=== PATIENT | female | born 2000 | race Caucasian/White ===

== ENCOUNTER 2021-04-26 23:29 | Emergency (ER) | payer MEDICAID ==
[~2021-04-26] VITALS: Ht 180.3 cm; Wt 104.9 kg
[2021-04-27] MEDS ORDERED: NORG1TAB82 (00:31)
[2021-04-27] MEDS ORDERED: CEPH500C (00:31)
[2021-04-27] MEDS ORDERED: ONDA4TAB11 (00:31)
--- NOTE | 2021-04-27 00:43 | ED GI ---
General Chief Complaint: Abdominal/GI Problems Stated Complaint: N/V / 8 WEEK PREG / DX: UTI / COUGH / FEVER Nursing Triage Note: REPORTS BEING 8 WEEKS WITH VOMITTING X2 WEEKS. Source of Information: Patient History of Present Illness Date Seen by Provider: Apr 27, 2021 Time Seen by Provider: 00:24 Initial Comments PT ARRIVES VIA POV FROM HOME IN [place] PT STATES SHE HAS BEEN SICK FOR THE LAST 2 WEEKS C/O NAUSEA AND VOMITING--"CAN'T KEEP ANYTHING DOWN" STATES SHE HAS VOMITED X 11 TODAY HAS NOT HAD A BM IN 2 WEEKS PT HAD + TEST ON 04/06/21. HAS NOT SEEN OB YET LMP 03/03/21. PT IS AB 0 NO VAGINAL BLEEDING PT STATES SHE HAS HAD TEMP OF 101.2 HAS BEEN TO [facility] X 3 FOR THIS SAME COMPLAINT AND WAS DX WITH SAME THING EVERY TIME AND DX WITH UTI HAS BEEN GIVEN ROCEPHIN AND UNKNOWN ANTIBIOTICS, AND ZOFRAN AND UNKNOWN SUPPOSITORY, BUT STATES SHE CAN'T KEEP ANYTHING DOWN PT HAS NOT TAKEN ANYTHING FOR NAUSEA SINCE YESTERDAY, AND USED SUPPOSITORY X 1 YESTERDAY PT WAS SEEN AT [facility] FOR THIS PROBLEM, GIVEN ROCEPHIN, AND DISMISSED AT [address] [facility] AND THEN CAME HERE. 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 PCP: DR. LE IN [place] Allergies and Home Medications Allergies Coded Allergies: No Known Drug Allergies (Unverified , 04/27/21) Review of Systems Review of Systems Constitutional: see HPI, fever EENTM: No Symptoms Reported Respiratory: No Symptoms Reported Cardiovascular: No Symptoms Reported Gastrointestinal: See HPI; Denies Abdominal Pain; Constipated, Nausea, Vomiting Musculoskeletal: no symptoms reported Skin: no symptoms reported Psychiatric/Neurological: No Symptoms Reported Endocrine: No Symptoms Reported Past Wvudclb-[id number]-[id number] Hx Patient Social History Tobacco Use?: No Use of E-Cig and/or Vaping dev: No Substance use?: No Alcohol Use?: No Pt feels they are or have been: No Immunizations Up To Date First/Initial COVID19 Vaccinat: 12/20 Second COVID19 Vaccination Chepe: 09/25 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 oz. kg; 32.00 BMI Method: General Appearance: WD/WN, no apparent distress, other (DOES NOT APPEAR ILL OR TO BE IN ANY DISCOMFORT OR DISTRESS) Respiratory: normal breath sounds, no respiratory distress, no accessory muscle use Cardiovascular: regular rate, rhythm, no murmur Gastrointestinal: soft Extremities: normal inspection, no pedal edema Back: no CVA tenderness Neurologic/Psychiatric: no motor/sensory deficits, alert, normal mood/affect, oriented x 3 Skin: normal color, warm/dry Progress/Results/Core Measures Results/Orders Lab Results Laboratory Tests Test 04/27/21 00:37 04/27/21 00:43 04/27/21 00:45 04/27/21 00:49 Range/Units Urine Opiates Screen NEGATIVE NEGATIVE Urine Oxycodone Screen NEGATIVE NEGATIVE Urine Methadone Screen NEGATIVE NEGATIVE Urine Propoxyphene Screen NEGATIVE NEGATIVE Urine Barbiturates Screen NEGATIVE NEGATIVE Ur Tricyclic Antidepressants Screen NEGATIVE NEGATIVE Urine Phencyclidine Screen NEGATIVE NEGATIVE Urine Amphetamines Screen NEGATIVE NEGATIVE Urine Methamphetamines Screen NEGATIVE NEGATIVE Urine Benzodiazepines Screen NEGATIVE NEGATIVE Urine Cocaine Screen NEGATIVE NEGATIVE Urine Cannabinoids Screen NEGATIVE NEGATIVE White Blood Count 13.7 H 4.3-11.0 10^3/uL Red Blood Count 4.48 3.80-5.11 10^6/uL Hemoglobin 12.7 11.5-16.0 g/dL Hematocrit 39 35-52 % Mean Corpuscular Volume 86 80-99 fL Mean Corpuscular Hemoglobin 28 25-34 pg Mean Corpuscular Hemoglobin Concent 33 32-36 g/dL Red Cell Distribution Width 13.9 10.0-14.5 % Platelet Count 303 130-400 10^3/uL Mean Platelet Volume 9.7 9.0-12.2 fL Immature Granulocyte % (Auto) 0 % Neutrophils (%) (Auto) 73 42-75 % Lymphocytes (%) (Auto) 22 12-44 % Monocytes (%) (Auto) 4 0-12 % Eosinophils (%) (Auto) 0 0-10 % Basophils (%) (Auto) 0 0-10 % Neutrophils # (Auto) 10.0 H 1.8-7.8 10^3/uL Lymphocytes # (Auto) 3.0 1.0-4.0 10^3/uL Monocytes # (Auto) 0.5 0.0-1.0 10^3/uL Eosinophils # (Auto) 0.0 0.0-0.3 10^3/uL Basophils # (Auto) 0.0 0.0-0.1 10^3/uL Immature Granulocyte # (Auto) 0.0 0.0-0.1 10^3/uL Sodium Level 135 135-145 MMOL/L Potassium Level 3.4 L 3.6-5.0 MMOL/L Chloride Level 104 98-107 MMOL/L Carbon Dioxide Level 20 L 21-32 MMOL/L Anion Gap 11 5-14 MMOL/L Blood Urea Nitrogen 4 L 7-18 MG/DL Creatinine 0.66 0.60-1.30 MG/DL Estimat Glomerular Filtration Rate 113 BUN/Creatinine Ratio 6 Glucose Level 108 H 70-105 MG/DL Calcium Level 9.8 8.5-10.1 MG/DL Corrected Calcium 9.6 8.5-10.1 MG/DL Magnesium Level 1.8 1.6-2.4 MG/DL Total Bilirubin 0.5 0.1-1.0 MG/DL Aspartate Amino Transf (AST/SGOT) 20 5-34 U/L Alanine Aminotransferase (ALT/SGPT) 27 0-55 U/L Alkaline Phosphatase 73 40-136 U/L Total Protein 7.5 6.4-8.2 GM/DL Albumin 4.3 3.2-4.5 GM/DL Amylase Level 48 25-125 U/L Lipase 17 8-78 U/L Human Chorionic Gonadotropin, Quant [id number] H <5 MIU/ML Urine Color YELLOW Urine Clarity CLEAR Urine pH 6.0 5-9 Urine Specific [place] 1.025 H 1.016-1.022 Urine Protein NEGATIVE NEGATIVE Urine Glucose (UA) NEGATIVE NEGATIVE Urine Ketones 3+ H NEGATIVE Urine Nitrite NEGATIVE NEGATIVE Urine Bilirubin NEGATIVE NEGATIVE Urine Urobilinogen 1.0 < = 1.0 MG/DL Urine Leukocyte Esterase TRACE H NEGATIVE Urine RBC (Auto) NEGATIVE NEGATIVE Urine RBC NONE /HPF Urine WBC RARE /HPF Urine Squamous Epithelial Cells 10-25 H /HPF Urine Crystals NONE /LPF Urine Bacteria NEGATIVE /HPF Urine Casts NONE /LPF Urine Mucus SMALL H /LPF Urine Culture Indicated NO Influenza Type A (RT-PCR) Not Detected Not Detecte Influenza Type B (RT-PCR) Not Detected Not Detecte SARS-CoV-2 RNA (RT-PCR) Not Detected Not Detecte My Orders Orders - JACKLYN GARCIA DO Ed Iv/Invasive Line Start (04/27/21 00:35) Amylase (04/27/21 00:35) Cbc With Automated Diff (04/27/21 00:35) Comprehensive Metabolic Panel (04/27/21 00:35) Drug Screen Stat (Urine) (04/27/21 00:35) Hcg,Quantitative (04/27/21 00:35) Lipase (04/27/21 00:35) Magnesium (04/27/21 00:35) Ua Culture If Indicated (04/27/21 00:35) Abo Rh Type (04/27/21 00:35) Ed Iv/Invasive Line Start (04/27/21 00:35) Lactated Ringers (Lr 1000 Ml Iv Solution (04/27/21 00:45) Ondansetron Injection (Zofran Injectio (04/27/21 00:45) Covid 19 Inhouse Test (04/27/21 00:35) Influenza A And B By Pcr (04/27/21 00:35) Ed Iv/Invasive Line Start (04/27/21 02:00) Lactated Ringers (Lr 1000 Ml Iv Solution (04/27/21 02:00) Medications Given in ED Current Medications Medications Dose Ordered Sig/Danelle Route Start Time Stop Time Status Last Admin Dose Admin Lactated Ringer's 1,000 ml @ 0 mls/hr Q0M ONCE IV 04/27/21 00:45 04/27/21 00:46 DC 04/27/21 00:48 0 MLS/HR Ondansetron HCl 4 mg ONCE ONCE IVP 04/27/21 00:45 04/27/21 00:46 DC 04/27/21 00:48 4 MG Vital Signs/I&O 04/27/21 00:22 Temp 36.7 Pulse 75 Resp 16 B/P (MAP) 118/81 (93) Pulse Ox 98 O2 Delivery Room Air Blood Pressure Mean: 93 Departure Impression Primary Impression: Nausea and vomiting during prior to 22 weeks gestation Additional Impression: Constipation during in first trimester Disposition: HOME, SELF-CARE Condition: Improved Departure-Patient Inst. Decision time for Depature: 02:00 Referrals: ELSY LE DO Patient Instructions: Morning Sickness ED, Constipation, Adult ED Add. Discharge Instructions: LOTS OF CLEAR LIQUIDS--WATER, BROTH, JELLO, GATORADE COLACE 2 PILLS TWICE A DAY FOR CONSTIPATION CONTINUE ZOFRAN NEEDED FOR NAUSEA CONTINUE SUPPOSITORIES FOR NAUSEA NEEDED FOLLOW UP WITH YOUR DR THIS WEEK FOR FURTHER CARE All discharge instructions reviewed with patient and/or family. Voiced understanding. Scripts Doxylamine/Pyridoxine HCl (Nadine Gamble 10-10 mg Tablet) 1 Each Tablet.dr 2 EACH PO HS, #60 TAB Prov: JACKLYN GARCIA DO 04/27/21 JACKLYN GARCIA DO Apr 27, 2021 00:43
[2021-04-27] MEDS ORDERED: ONDANSETRON 4 MG/2 ML (SDV) Z0FRAN IVP ONE (00:45)
[2021-04-27] MEDS ORDERED: LACTATED RINGERS 1,000 ML IV ONE ×2 (00:45→02:00)
[2021-04-27 00:52] LABS: BILIRUBIN,URINE NEGATIVE (NEGATIVE); CLARITY,URINE CLEAR; COLOR,URINE YELLOW; GLUCOSE, URINE (UA) NEGATIVE (NEGATIVE); KETONES,URINE 3+ (NEGATIVE); LEUKOCYTE ESTERASE ,URINE TRACE (NEGATIVE); NITRITE,URINE NEGATIVE (NEGATIVE); PROTEIN,URINE NEGATIVE (NEGATIVE)
[2021-04-27 01:04] LABS: BASOPHILS % (AUTO) 0 % (0-10); EOSINOPHILS % (AUTO) 0 % (0-10); HEMATOCRIT 39 % (35-52); HEMOGLOBIN 12.7 g/dL (11.5-16.0); LYMPHOCYTES % (AUTO) 22 % (12-44); MEAN CORPUSCULAR HEMOGLOBIN 28 pg (25-34); MEAN CORPUSCULAR HGB CONC 33 g/dL (32-36); MEAN CORPUSCULAR VOLUME 86 fL (80-99); MEAN PLATELET VOLUME 9.7 fL (9.0-12.2); MONOCYTES # (AUTO) 0.5 10^3/uL (0.0-1.0); MONOCYTES % (AUTO) 4 % (0-12); NEUTROPHILS % (AUTO) 73 % (42-75); PLATELET COUNT 303 10^3/uL (130-400); WHITE BLOOD COUNT 13.7 10^3/uL (4.3-11.0)
[2021-04-27 01:05] LABS: AMPHETAMINE SCREEN, URINE NEGATIVE (NEGATIVE); BARBITURATE SCREEN URINE NEGATIVE (NEGATIVE); BENZODIAZEPINES SCREEN URINE NEGATIVE (NEGATIVE); CANNABINOID SCREEN, URINE NEGATIVE (NEGATIVE); COCAINE SCREEN URINE NEGATIVE (NEGATIVE); METHADONE STAT NEGATIVE (NEGATIVE); METHAMPHETAMINE SCREEN URINE S NEGATIVE (NEGATIVE); OPIATE SCREEN URINE NEGATIVE (NEGATIVE); OXYCODONE STAT NEGATIVE (NEGATIVE); PROPOXYPHENE STAT NEGATIVE (NEGATIVE); TRICYCLIC ANTIDEPRESSANTS SCRE NEGATIVE (NEGATIVE)
[2021-04-27 01:05] LABS: BACTERIA,URINE NEGATIVE /HPF; WBC,URINE RARE /HPF
[2021-04-27 01:13] LABS: ALBUMIN 4.3 GM/DL (3.2-4.5)
[2021-04-27 01:14] LABS: POTASSIUM 3.4 MMOL/L (3.6-5.0)
[2021-04-27 01:15] LABS: CALCIUM 9.8 MG/DL (8.5-10.1)
[2021-04-27 01:16] LABS: TOTAL PROTEIN 7.5 GM/DL (6.4-8.2)
[2021-04-27 01:18] LABS: BILIRUBIN,TOTAL 0.5 MG/DL (0.1-1.0)
[2021-04-27 01:19] LABS: CREATININE SERUM 0.66 MG/DL (0.60-1.30)
[2021-04-27 01:23] LABS: MAGNESIUM 1.8 MG/DL (1.6-2.4)
[2021-04-27] MEDS ORDERED: DOXY1TAB3 PO (02:21)
[2021-04-27 02:25] VITALS: BP 116/79
== END 2021-04-27 02:28 | disposition home or self-care (01) ==
LOC: ER 23:33
DX: O21.0 Mild hyperemesis gravidarum (principal); K59.00 Constipation, unspecified; Z3A.00 Weeks of gestation of pregnancy not specified; Z20.822 Contact with and (suspected) exposure to COVID-19
CPT/HCPCS: 36415; 80053; 80306; 81000; 82150; 83690; 83735; 84702; 85025; 86900; 86901; 87636; 96361; 96374